=== PATIENT | male | born 1950 | race Caucasian/White ===

== ENCOUNTER 2018-02-27 09:23 | Emergency (ER) | payer SELFPAY ==
[~2018-02-27] VITALS: Ht 198.1 cm; Wt 75.0 kg
[2018-02-27 09:58] LABS: BASOPHILS % 0.9 % (0.0-2.0); EOSINOPHILS % 1.9 % (0.0-5.0); HEMATOCRIT. 40.4 % (42.0-52.0); HEMOGLOBIN. 13.7 g/dL (14.0-18.0); LYMPHOCYTES % 17.9 % (20.0-50.0); MEAN CORPUSCULAR HEMOGLOBIN 29.6 pg (28.0-32.0); MEAN CORPUSCULAR VOLUME 87.5 fL (80.0-94.0); MEAN PLATELET VOLUME 8.6 fl (7.4-10.4); MONOCYTES % 13.3 % (2.0-8.0); PLATELET 196 x1000/uL (130-400); RED BLOOD CELL COUNT 4.62 mill/uL (4.7-6.1)
[2018-02-27 10:05] LABS: CHLORIDE 101 mEq/L (98-107)
[2018-02-27 10:06] LABS: INR 3.1; PROTHROMBIN TIME 32.6 sec (9.4-11.6)
[2018-02-27] MEDS ORDERED: IOHEXOL-350 100 ML BOTTLE ONE (11:18)
[2018-02-27 11:59] VITALS: BP 120/68
== END 2018-02-27 12:17 | disposition home or self-care (01) ==
LOC: ER 09:55
DX: M54.6 Pain in thoracic spine (principal); R79.1 Abnormal coagulation profile; D64.9 Anemia, unspecified; E87.1 Hypo-osmolality and hyponatremia; F20.9 Schizophrenia, unspecified; Q87.40 Marfan syndrome, unspecified
CPT/HCPCS: 36415; 71045; 71275; 80053; 83880; 84484; 85025; 85610; 93005; 99285; Q9967; Z7610